=== PATIENT | female | born 1975 | race Caucasian/White ===

== ENCOUNTER 2016-06-04 19:10 | Emergency (ER) | payer MEDICAID ==
[2016-06-04] MEDS ORDERED: Sodium Chloride 0.9% 5 ML Syringe FLUSH PRN (19:49)
[2016-06-04] MEDS ORDERED: Acetaminophen 500 MG Tab PO ONE (19:49)
[2016-06-04] MEDS ORDERED: Sodium Chloride 0.9% 1,000 ML IV ONE ×2 (19:49→20:38)
--- NOTE | 2016-06-04 19:51 | EDM.PDOC ---
ED HPI GENERAL MEDICAL PROBLEM - General Chief Complaint: Fever Stated Complaint: FEVER Time Seen by Provider: 06/04/16 19:35 Source of Information: Reports: Patient History Limitations: Reports: No limitations - History of Present Illness INITIAL COMMENTS - FREE TEXT/NARRATIVE: 40 YO WF presents to ER with fever/chills x 10days. Pt reports she was seen in clinic for URI symptoms 10 days ago and started on augmentin for suspect otitis media. Pt took 7 day course but continued to feel worse with associated upper back pain, weakness and shortness of breath. Pt was seen in clinic again 3 days ago and had a chest xray with patient states was negative but was then started on a z lauren. Pt states shes been trying to control her fevers with motrin 800mg every 6 hours but today it continued despite motrin. Pt denies any productive cough, denies dysuria, frequency or urgency. Onset Date: 05/26/16 Duration: Day(s): (10) Location: Reports: chest, back, generalized Quality: Reports: Ache Severity: mild Improves with: Reports: Medication Worsens with: Reports: None Associated Symptoms: Reports: chest pain, cough, fever/chills, loss of appetite , malaise, shortness of breath, weakness. Denies: cough w sputum, diaphoresis, headaches, nausea/vomiting, rash, syncope Treatments THERAPIST PHYS: Reports: NSAIDS - Related Data Allergies Allergy/AdvReac Type Severity Reaction Status Date / Time No Known Drug Allergies Allergy NKDA Verified 01/27/15 08:11 Home Meds: Home Meds Cetirizine [ZyrTEC] 10 mg PO DAILY PRN 01/26/15 [History] Cholecalciferol (Vitamin D3) [Vitamin D3] 1,000 units PO DAILY 01/26/15 [History ] Chromium Amino Acid Chelate [Chromium] 200 mcg PO BID 01/26/15 [History] Cyanocobalamin (Vitamin B-12) [B-12] 500 mcg PO DAILY 01/26/15 [History] Fish Oil/[place]-3 Fatty Acids [Fish Oil] 1 each PO DAILY 01/26/15 [History] Hydrochlorothiazide 50 mg PO DAILY 01/26/15 [History] Levothyroxine 125 mcg PO ACBREAKFAST 01/26/15 [History] Multivitamin [Multiple Vitamins] 1 tab PO DAILY 01/26/15 [History] Nystatin [Nystatin Crm] 1 applic TOP ASDIRECTED PRN 01/26/15 [History] Omeprazole 20 mg PO DAILY PRN 01/26/15 [History] Phentermine HCl 37.5 mg PO DAILY 01/26/15 [History] metFORMIN [Glucophage] 500 mg PO ACBREAKFAST 01/26/15 [History] Estradiol 0.5 mg PO DAILY 03/31/15 [History] Past Medical History - Past Health History Medical/Surgical History: Denies Medical/Surgical History Social & Family History - Tobacco Use Smoking Status *Q: Current Every Day Smoker Years of Tobacco use: 22 Packs/Tins Daily: 0.5 Used Tobacco, but Quit: No - Recreational Drug Use Recreational Drug Use: No ED ROS GENERAL - Review of Systems Review Of Systems: See Below Constitutional: Reports: fever, chills, decreased appetite HEENT: Reports: No symptoms Respiratory: Reports: Shortness of Breath, Cough Cardiovascular: Reports: Chest pain Endocrine: Reports: fatigue GI/Abdominal: Reports: No symptoms : Reports: no symptoms Musculoskeletal: Reports: back pain Skin: Reports: no symptoms Neurological: Reports: No Symptoms Psychiatric: Reports: No symptoms Hematologic/Lymphatic: Reports: no symptoms Immunologic: Reports: no symptoms ED EXAM, GENERAL - Physical Exam Exam: See Below Exam Limited By: No limitations General Appearance: alert, WD/WN, no apparent distress Eye Exam: bilateral eye: EOMI, PERRL Ears: normal external exam, normal canal, hearing grossly normal, normal TMs Ear Exam: bilateral ear: auricle normal, canal normal, TM normal Nose: normal inspection, normal mucosa, no blood Throat/Mouth: Normal inspection, Normal lips, Normal teeth, Normal gums, Normal oropharynx, Normal voice, No airway compromise Head: atraumatic, normocephalic Neck: normal inspection, supple, non-tender, full range of motion Respiratory/Chest: no respiratory distress, lungs clear, normal breath sounds, no accessory muscle use, chest non-tender Cardiovascular: normal peripheral pulses, regular rate, rhythm, no edema, no gallop, no JVD, no murmur, no rub GI/Abdominal: normal bowel sounds, soft, non tender, no organomegaly, no distention, no abnormal bruit, no mass Back Exam: normal inspection, full range of motion, NT Extremities: normal inspection, normal range of motion, non-tender, normal capillary refill, no pedal edema Neurological: alert, oriented, CN II-XII intact, normal cognition, normal gait, normal reflexes, no motor/sensory deficits Psychiatric: normal affect, normal mood Skin Exam: Warm, Dry, Intact, Normal color, No rash Lymphatic: no adenopathy EKG INTERPRETATION EKG Date: 06/04/16 Time: 20:01 Rhythm: NSR Rate (beats/min): 97 [place]: normal P-wave: present QRS: normal ST-T: normal QT: normal Comparison: NA - no prior EKG Course - Vital Signs Last Recorded V/S: Last Vital Signs Temp 38.7 C H 06/04/16 20:50 Pulse 97 06/04/16 20:50 Resp 26 H 06/04/16 20:50 BP 118/59 L 06/04/16 20:50 Pulse Ox 98 06/04/16 20:50 - Orders/Labs/Meds Orders: Active Orders 24 hr Category Date Time Status Cardiac Monitoring [RC] . DIRECTED Care 06/04/16 20:32 Active EKG Documentation Completion [RC] ASDIRECTED Care 06/04/16 19:51 Active Peripheral IV Care [RC] . DIRECTED Care 06/04/16 19:49 Active Chest 1V Frontal [CR] Stat Exams 06/04/16 19:49 Taken CULTURE BLOOD [BC] Stat Lab 06/04/16 19:30 Received CULTURE BLOOD [BC] Stat Lab 06/04/16 20:38 Received CULTURE BLOOD [BC] Stat Lab 06/04/16 21:25 Received Blood Culture x2 Reflex Set [OM.PC] Stat Oth 06/04/16 19:49 Ordered Peripheral IV Insertion Adult [OM.PC] Routine Oth 06/04/16 19:49 Ordered EKG 12 Lead [EK] Routine Ther 06/04/16 19:51 Ordered Labs: Laboratory Tests 06/04/16 06/04/16 06/04/16 Range/Units 19:30 19:30 19:30 WBC 3.8 L (5.0-10.0) 10^3/uL RBC 4.78 (3.80-5.50) 10^6/uL Hgb 14.7 (12.0-16.0) g/dL Hct 43.0 (37.0-47.0) % MCV 89.9 (82.0-92.0) fL MCH 30.7 (27.0-31.0) pg MCHC 34.2 (32.0-36.0) g/dL RDW 12.3 (11.5-14.5) % Plt Count 138 L (150-300) 10^3/uL MPV 8.1 (7.4-10.4) fL Neut % (Auto) 60.7 (50.0-70.0) % Lymph % (Auto) 26.1 (20.0-40.0) % Winston % (Auto) 11.6 H (2.0-8.0) % Eos % (Auto) 0.6 L (1.0-3.0) % Baso % (Auto) 1.0 (0.0-1.0) % Neut # (Auto) 2.4 L (2.5-7.0) 10^3/uL Lymph # (Auto) 1.0 (1.0-4.0) 10^3/uL Winston # (Auto) 0.4 (0.1-0.8) 10^3/uL Eos # (Auto) 0.0 L (0.1-0.3) 10^3/uL Baso # (Auto) 0.0 (0.0-0.1) 10^3/uL Sodium 141 (136-145) mmol/L Potassium 3.5 (3.3-5.3) mmol/L Chloride 99 (98-115) mmol/L Carbon Dioxide 33.2 H (21.0-32.0) mmol/L BUN 12 (6-25) mg/dL Creatinine 0.72 (0.51-1.17) mg/dL Est Cr Clr Drug Dosing TNP Estimated GFR (MDRD) > 60 mL/min Glucose 119 H (70-110) mg/dL Lactic Acid (0.4-2.0) mmol/L Calcium 9.1 (8.7-10.3) mg/dL Total Bilirubin 1.0 (0.2-1.0) mg/dL AST 67 H (15-37) U/L ALT 95 H (12-78) U/L Alkaline Phosphatase 90 (46-116) IU/L Creatine Kinase 86 (26-276) U/L CK-MB (CK-2) 16.30 H* (0.00-4.30) ng/mL Troponin I 0.13 H* (0.00-0.070) ng/mL Total Protein 7.5 (6.4-8.2) g/dL Albumin 3.92 (3.00-4.80) g/dL Specimen Type Urinvoid Urine Color Yellow (YELLOW) Urine Appearance Slightly cloudy H (CLEAR) Urine pH 7.0 (5.0-9.0) Ur Specific Nelson 1.020 (1.005-1.030) Urine Protein Trace H (NEGATIVE) mg/dL Urine Glucose (UA) Negative (NEGATIVE) mg/dL Urine Ketones Negative (NEGATIVE) mg/dL Urine Occult Blood Moderate H (NEGATIVE) Urine Nitrite Negative (NEGATIVE) Urine Bilirubin Negative (NEGATIVE) Urine Urobilinogen 1.0 (0.2-1.0) E.U./dL Ur Leukocyte Esterase Negative (NEGATIVE) Urine RBC 5-10 H /HPF Urine WBC 0-5 /HPF Ur Epithelial Cells Many H /LPF Urine Bacteria Not seen (NONE TO FEW) /HPF Urine Mucus Rare H (NEGATIVE) /LPF 06/04/16 Range/Units 21:00 WBC (5.0-10.0) 10^3/uL RBC (3.80-5.50) 10^6/uL Hgb (12.0-16.0) g/dL Hct (37.0-47.0) % MCV (82.0-92.0) fL MCH (27.0-31.0) pg MCHC (32.0-36.0) g/dL RDW (11.5-14.5) % Plt Count (150-300) 10^3/uL MPV (7.4-10.4) fL Neut % (Auto) (50.0-70.0) % Lymph % (Auto) (20.0-40.0) % Winston % (Auto) (2.0-8.0) % Eos % (Auto) (1.0-3.0) % Baso % (Auto) (0.0-1.0) % Neut # (Auto) (2.5-7.0) 10^3/uL Lymph # (Auto) (1.0-4.0) 10^3/uL Winston # (Auto) (0.1-0.8) 10^3/uL Eos # (Auto) (0.1-0.3) 10^3/uL Baso # (Auto) (0.0-0.1) 10^3/uL Sodium (136-145) mmol/L Potassium (3.3-5.3) mmol/L Chloride (98-115) mmol/L Carbon Dioxide (21.0-32.0) mmol/L BUN (6-25) mg/dL Creatinine (0.51-1.17) mg/dL Est Cr Clr Drug Dosing Estimated GFR (MDRD) mL/min Glucose (70-110) mg/dL Lactic Acid 0.9 (0.4-2.0) mmol/L Calcium (8.7-10.3) mg/dL Total Bilirubin (0.2-1.0) mg/dL AST (15-37) U/L ALT (12-78) U/L Alkaline Phosphatase (46-116) IU/L Creatine Kinase (26-276) U/L CK-MB (CK-2) (0.00-4.30) ng/mL Troponin I (0.00-0.070) ng/mL Total Protein (6.4-8.2) g/dL Albumin (3.00-4.80) g/dL Specimen Type Urine Color (YELLOW) Urine Appearance (CLEAR) Urine pH (5.0-9.0) Ur Specific Nelson (1.005-1.030) Urine Protein (NEGATIVE) mg/dL Urine Glucose (UA) (NEGATIVE) mg/dL Urine Ketones (NEGATIVE) mg/dL Urine Occult Blood (NEGATIVE) Urine Nitrite (NEGATIVE) Urine Bilirubin (NEGATIVE) Urine Urobilinogen (0.2-1.0) E.U./dL Ur Leukocyte Esterase (NEGATIVE) Urine RBC /HPF Urine WBC /HPF Ur Epithelial Cells /LPF Urine Bacteria (NONE TO FEW) /HPF Urine Mucus (NEGATIVE) /LPF Meds: Medications Discontinued Medications Generic Name Dose Route Start Last Admin Trade Name Freq PRN Reason Stop Dose Admin Acetaminophen 1,000 mg 06/04/16 19:49 06/04/16 19:50 Tylenol Extra Strength PO 06/04/16 19:50 1,000 mg ONETIME ONE Administration Ceftriaxone Sodium 1 gm 06/04/16 21:15 06/04/16 21:45 Rocephin IVPUSH 1 gm Q24H SINDI Administration Sodium Chloride 1,000 mls @ 999 mls/hr 06/04/16 19:49 06/04/16 20:39 Normal Saline IV 06/04/16 20:49 999 mls/hr .BOLUS ONE Administration Sodium Chloride 1,000 mls @ 999 mls/hr 06/04/16 20:38 06/04/16 20:44 Normal Saline IV 06/04/16 21:38 999 mls/hr .BOLUS ONE Administration Vancomycin HCl 1 gm/ Sodium 250 mls @ 167 mls/hr 06/04/16 21:07 06/04/16 21: 45 Chloride IV 06/04/16 22:36 167 mls/hr ONETIME ONE Administration Sodium Chloride 1,000 mls @ 150 mls/hr 06/04/16 21:30 06/04/16 21:49 Normal Saline IV 150 mls/hr ASDIRECTED SINDI Administration Sodium Chloride 5 ml 06/04/16 19:49 06/04/16 21:45 Syrex Flush FLUSH 5 ml Q8HR PRN Administration Keep Vein Open - Radiology Interpretation Free Text/Narrative:: CXR- NAD Departure - Departure Time of Disposition: 20:41 Disposition: DC/Tfer to Acute Hospital 02 Condition: fair Clinical Impression: Elevated troponin I level Fever Qualifiers: Fever type: unspecified Qualified Code(s): R50.9 - Fever, unspecified Referrals: Tyshawn Banerjee, [employer] [Primary Care Provider] - Forms: Interfacility Transfer EMMANUELLE - My Orders Last 24 Hours: My Active Orders 06/04/16 19:30 CULTURE BLOOD [BC] Stat 06/04/16 19:49 Peripheral IV Care [RC] . DIRECTED Chest 1V Frontal [CR] Stat Blood Culture x2 Reflex Set [OM.PC] Stat Peripheral IV Insertion Adult [OM.PC] Routine 06/04/16 19:51 EKG Documentation Completion [RC] ASDIRECTED EKG 12 Lead [EK] Routine 06/04/16 20:32 Cardiac Monitoring [RC] . DIRECTED 06/04/16 20:38 CULTURE BLOOD [BC] Stat 06/04/16 21:25 CULTURE BLOOD [BC] Stat - Assessment/Plan Last 24 Hours: My Active Orders 06/04/16 19:30 CULTURE BLOOD [BC] Stat 06/04/16 19:49 Peripheral IV Care [RC] . DIRECTED Chest 1V Frontal [CR] Stat Blood Culture x2 Reflex Set [OM.PC] Stat Peripheral IV Insertion Adult [OM.PC] Routine 06/04/16 19:51 EKG Documentation Completion [RC] ASDIRECTED EKG 12 Lead [EK] Routine 06/04/16 20:32 Cardiac Monitoring [RC] . DIRECTED 06/04/16 20:38 CULTURE BLOOD [BC] Stat 06/04/16 21:25 CULTURE BLOOD [BC] Stat Assessment:: 1. intractable fever 2. rule out bacteremia 3. rule out sepsis 4. elevated trop I rule out endocarditis or NSTEMI Plan: 1. transfer for rule out sepsis/endocarditis/NSTEMI 2. nitro/ASA 3. discuss with [facility] 4. Dr Bashir accepting
[2016-06-04 20:36] LABS: CHLORIDE,CL 99 mmol/L (98-115); SODIUM,NA 141 mmol/L (136-145)
[2016-06-04 20:51] VITALS: BP 118/59
[2016-06-04] MEDS ORDERED: cefTRIAXone 1 GM Vial IVPUSH SCH (21:15)
[2016-06-04] MEDS ORDERED: Sodium Chloride 0.9% 1,000 ML IV SCH (21:30)
== END 2016-06-04 21:35 ==
LOC: KA.ED 19:10
DX: R50.9 Fever, unspecified (principal); R79.89 Other specified abnormal findings of blood chemistry; R06.02 Shortness of breath; R53.1 Weakness; F17.210 Nicotine dependence, cigarettes, uncomplicated; Z79.899 Other long term (current) drug therapy
CPT/HCPCS: 71010; 80053; 81001; 82550; 82553; 83605; 84484; 85025; 87040; 87804; 93005; 96361; 96365; 96375; 99285; A9270; J0696; J3370; J7030; J7050

== ENCOUNTER 2016-06-17 15:29 | Inpatient (IN) | payer MEDICAID ==
[2016-06-17] MEDS ORDERED: Nitroglycerin 0.4 MG Tab.SL SL PRN (16:08)
[2016-06-17] MEDS ORDERED: Lidocaine 2% 100 MG/5 ML Syringe IVPUSH PRN (16:08)
[2016-06-17] MEDS ORDERED: Atropine 0.1 MG/ML 10 ML Syringe IVPUSH PRN (16:08)
[2016-06-17] MEDS ORDERED: EPINEPHrine 1:10,000 1 MG/10 ML Syringe IVPUSH PRN (16:08)
[2016-06-17] MEDS ORDERED: Sodium Chloride 0.9% 1,000 ML IV SCH (17:00)
[2016-06-17] MEDS ORDERED: Ondansetron 4 MG/2 ML SDV IV PRN (18:16)
[2016-06-17] MEDS ORDERED: Acetaminophen 325 MG Tab PO PRN (18:16)
[2016-06-17] MEDS ORDERED: Cetirizine 10 MG Tab PO PRN (18:21)
[2016-06-17] MEDS ORDERED: Nystatin Crm 15 GM Tube TOP PRN (18:21)
[2016-06-17] MEDS ORDERED: Isosorbide Mononitrate 30 MG Tab.ER PO SCH (18:30)
--- NOTE | 2016-06-17 20:33 | PCM.DCSUM1 ---
Discharge Summary - Hospital Course Free Text/Narrative:: This is a 40 year old female who was seen at the [facility] this afternoon for fever, chest pain, shortness of breath, and headache. The patient developed a temp of 102 last evening and took ibuprofen. She complains of a headache to the back of her head stating it felt like she was hit with a "sledgehammer". The patient was recently hospitalized at [facility] for the same symptoms on 06/04/16 and discharged on 06/10/16. She underwent extensive workup for possible aspetic meningitis. She also had a mild type II NSTEMI at that time. It was deemed she had fever of unknown etiology. She was symptom free on discharge and up until last evening (06/16/16). The patient was subsequently admitted to the [facility] for further workup of her condition. - Discharge Data Discharge Date: 06/17/16 Discharge Disposition: DC/Tfer to Other 70 Condition: Fair - Patient Summary/Data Consults: Infectious Disease-Dr. Joseph Hospitalist-Dr. Harper Labs Pending at D/C: Blood cultures x 2 Viral culture - Discharge Plan Home Medications: Home Meds Cetirizine [ZyrTEC] 10 mg PO DAILY PRN 01/26/15 [History] Cholecalciferol (Vitamin D3) [Vitamin D3] 1,000 units PO DAILY 01/26/15 [History ] Chromium Amino Acid Chelate [Chromium] 200 mcg PO DAILY 01/26/15 [History] Cyanocobalamin (Vitamin B-12) [B-12] 500 mcg PO DAILY 01/26/15 [History] Hydrochlorothiazide 50 mg PO DAILY 01/26/15 [History] Levothyroxine 137 mcg PO ACBREAKFAST 01/26/15 [History] Multivitamin [Multiple Vitamins] 1 tab PO DAILY 01/26/15 [History] Nystatin [Nystatin Crm] 1 applic TOP ASDIRECTED PRN 01/26/15 [History] Omeprazole 20 mg PO BIDMEALS 01/26/15 [History] Phentermine HCl 37.5 mg PO DAILY 01/26/15 [History] metFORMIN [Glucophage] 500 mg PO ACBREAKFAST 01/26/15 [History] Estradiol 1 mg PO DAILY 03/31/15 [History] Cyclobenzaprine [Flexeril] 5 mg PO TID PRN 06/17/16 [History] Fluconazole [Diflucan] 150 mg PO ASDIRECTED 06/17/16 [History] QUEtiapine [SEROquel] 12.5 mg PO BEDTIME 06/17/16 [History] metFORMIN HCl [Metformin HCl] 1,000 mg PO ACDINNER 06/17/16 [History] - Discharge Summary/Plan Comment DC Time >30 min.: Yes (Approximately 50 minutes of coordination of transfer.) Discharge Summary/Plan Comment: Date of admission: 06/17/16 Date of discharge: 06/17/16 Admitting diagnosis: Primary: Fever of unknown etiology, Rule out UT with recent NSTEMI Secondary: Hypertension, Hypothyroidism, Obesity, Low back pain, Environmental allergies, Hyperlipidemia, Surgical menopause on HRT, Generalized anxiety disorder, Lung nodule Final diagnosis: Primary: Fever of unknown etiology, Rule out UT with recent NSTEMI Secondary: Hypertension, Hypothyroidism, Obesity, Low back pain, Environmental allergies, Hyperlipidemia, Surgical menopause on HRT, Generalized anxiety disorder, Lung nodule Procedures performed: None Hospital Course: The patient's hospital course was quite short. The patient continued to spike a temperature without antipyretic on board. It was as high as 100.4 F. She continued to have an occipital headache, chest pressure, and shortness of breath at rest. EKG revealed normal sinus rhythm without ST segment changes and good R wave progression. Her troponin was 0.04. She was placed on telemetry. WBC 8.6 with no left shift. BMP unremarkable. UA revealed moderate blood, few bacteria, no leukocytes or nitrites. Patient is status post hysterectomy. She had blood cultures x 2 and a viral culture done on admission. Chest x-ray was negative for acute process. She was placed on IV fluids. She was not initiated on antibiotics. With returning of same symptoms that she was previously hospitalized for a consult phone call was placed to [facility], Dr. Joseph. Long discussion and review of previous workup was done with him over the phone. He requested patient be sent to [place] for further evaluation. Dr. Harper, hospitalist, accepted the patient. Due to shortage of ambulances for transfer, patient was discharged from the facility and transferred by private car. Patient and family in agreement with this and comfortable with this plan. Patient's IV was saline locked. New medications on discharge: None New changes to home medications on discharge: None Regular home medications on discharge: -Metformin 500 mg po in the AM and 1000 mg po in the PM -Seroquel 12.5 mg po daily -Estradiol 1 mg po daily -Levothyroxine 137 mcg po daily -Phentermine 37.5 mg po daily -Felxeril 5 mg po TID PRN -HCTZ 50 mg po daily -Nystatin cream topically to affected area PRN for itching -Chromium 200 mcg po daily -Vitamin D3 1000 units po daily -Vitamin B12 500 mcg po daily -Multivitamin 1 tablet po daily -Zyrtec 10 mg po daily -Diflucan 150 mg po as directed Condition, Treatment, and Final Disposition: The patient was in fair, but stable condition at the time of discharge. She went via private car to [facility] for direct admission. Dr. Harper was accepting physician. - General Info Date of Service: 06/17/16 Subjective Update: Patient reports continued fever, chills, sweating, posterior headache, chest pressure, and shortness of breath. - Patient Data Vitals - Most Recent: Last Vital Signs Temp 99.1 F 06/17/16 19:09 Pulse 102 H 06/17/16 19:00 Resp 16 06/17/16 19:00 BP 115/67 06/17/16 19:10 Pulse Ox 95 06/17/16 19:00 Weight - Most Recent: 221 lb 3.2 oz Lab Results - Last 24 hrs: Laboratory Results - last 24 hr 06/17/16 Range/Units 16:30 Troponin I 0.04 (0.00-0.070) ng/mL Med Orders - Current: Current Medications Acetaminophen (Tylenol) 650 mg PO Q4H PRN PRN Reason: Pain (Mild 1-3)/fever Last Admin: 06/17/16 19:09 Dose: 650 mg Atropine Sulfate (Atropine 0.1 Mg/Ml) 0 mg IVPUSH ASDIRECTED PRN PRN Reason: Heart Cetirizine HCl (Zyrtec) 10 mg PO DAILY PRN PRN Reason: Allergies Cyanocobalamin (Vitamin B12) 500 mcg PO DAILY SIDNI Epinephrine HCl (Epinephrine 1:10,000) 1 mg IVPUSH ASDIRECTED PRN PRN Reason: Heart Estradiol (Estradiol) 1 mg PO DAILY SINDI Hydrochlorothiazide (Hydrochlorothiazide) 50 mg PO DAILY SINDI Sodium Chloride (Normal Saline) 1,000 mls @ 70 mls/hr IV ASDIRECTED SINDI Last Admin: 06/17/16 17:20 Dose: 70 mls/hr Isosorbide Mononitrate (Imdur) 30 mg PO DAILY [facility] Last Admin: 06/17/16 19:10 Dose: 30 mg Levothyroxine Sodium (Levothyroxine) 112 mcg PO ACBREAKFAST SINDI Levothyroxine Sodium (Levothyroxine) 25 mcg PO ACBREAKFAST SINDI Lidocaine HCl (Xylocaine 2%) 0 mg IVPUSH ASDIRECTED PRN PRN Reason: Heart Nitroglycerin (Nitrostat) 0.4 mg SL ASDIRECTED PRN PRN Reason: Heart Non-Formulary Medication (Chromium Amino Acid Chelate [Chromium]) 200 mcg PO DAILY [facility] Nystatin (Nystatin Crm) 0 gm TOP ASDIRECTED PRN PRN Reason: Other Omeprazole (Omeprazole) 20 mg PO BIDAC [facility] Ondansetron HCl (Zofran) 4 mg IV Q4H PRN PRN Reason: Nausea/Vomiting Quetiapine Fumarate (Seroquel) 12.5 mg PO BEDTIME SINDI *Q Meaningful Use (DIS) - VTE *Q VTE Criteria *Q: - Stroke *Q Stroke Criteria *Q: - AMI *Q AMI Criteria *Q:
[2016-06-17 20:48] VITALS: BP 129/72
[2016-06-17] MEDS ORDERED: QUEtiapine 25 MG Tab PO SCH (21:00)
[2016-06-18] MEDS ORDERED: Omeprazole 20 MG Cap.CR PO SCH (07:00)
[2016-06-18] MEDS ORDERED: Levothyroxine 112 MCG Tab PO SCH (07:00)
[2016-06-18] MEDS ORDERED: Levothyroxine 25 MCG Tab PO SCH (07:00)
[2016-06-18] MEDS ORDERED: CHROMIUM AMINO ACID CHELATE PO SCH (09:00)
[2016-06-18] MEDS ORDERED: Cyanocobalamin (Vitamin B12) 500 MCG Tab PO SCH (09:00)
[2016-06-18] MEDS ORDERED: Estradiol 0.5 MG Tab PO SCH (09:00)
[2016-06-18] MEDS ORDERED: Hydrochlorothiazide 25 MG Tab PO SCH (09:00)
== END 2016-06-17 21:15 | disposition other institution (70) | DRG 864 ==
LOC: KA.MS 15:59
PROVIDERS: ADMIT Nurse Practitioner Family; ATTEND Nurse Practitioner Family
DX: R50.9 Fever, unspecified (principal); I21.3 ST elevation (STEMI) myocardial infarction of unspecified site; I10 Essential (primary) hypertension; E03.9 Hypothyroidism, unspecified; E66.9 Obesity, unspecified; Z68.37 Body mass index [BMI] 37.0-37.9, adult; M54.5 Low back pain; J30.2 Other seasonal allergic rhinitis; E78.5 Hyperlipidemia, unspecified; F41.9 Anxiety disorder, unspecified; R91.1 Solitary pulmonary nodule
CPT/HCPCS: 36415; 71020; 84484; 87040; 93005; A9270-GY; J7030

== ENCOUNTER 2018-08-09 16:25 | Emergency (ER) | payer BC ==
[2018-08-09] MEDS: Dexamethasone 10 MG/ML SDV IM ONE (16:54)
[2018-08-09 16:59] VITALS: BP 154/80
--- NOTE | 2018-08-09 17:10 | EDM.PDOC ---
ED HPI GENERAL MEDICAL PROBLEM - General Chief Complaint: General Stated Complaint: R-SIDED FACIAL NUMBNESS Time Seen by Provider: 08/09/18 16:43 Source of Information: Reports: Patient History Limitations: Reports: No Limitations - History of Present Illness INITIAL COMMENTS - FREE TEXT/NARRATIVE: Patient is a 43-year-old female who presents to the emergency department this afternoon with a complaint of rash and right cheek numbness and tingling. Patient states at approximately 11 a.m. this morning, she noticed some tingling of her right cheek. When she touched it felt like it was a little numb. This continued and she decided to present to the ER. Patient does have a history of chronic generalized rash. She has had multiple tests done and is currently taking Claritin. She is planning to see a food safety director. Patient states that she takes Claritin first thing in the morning and typically does not have a rash during the day, however, when she does get into bed at night the rash seems to develop and she is very itchy. Currently she is not taking any antihistamine medication in the PM. Patient denies headache, vision changes, ptosis, difficulty speaking or swallowing, fever, chest pain, shortness of breath, change in medication, or similar symptoms in the past. Onset: Today Onset Date: 08/09/18 Duration: Hour(s): Location: Reports: Face, Generalized (Rash) Quality: Reports: Other (Itchy) Improves with: Reports: None, Other (Rash improves during day following Claritin ) Worsens with: Reports: Other (Rash worsens in the evening) Associated Symptoms: Reports: Rash. Denies: Chest Pain, Diaphoresis, Fever/ Chills, Headaches, Nausea/Vomiting, Shortness of Breath, Syncope, Weakness - Related Data Allergies Allergy/AdvReac Type Severity Reaction Status Date / Time No Known Drug Allergies Allergy NKDA Verified 08/09/18 16:43 Home Meds: Home Meds Cetirizine [ZyrTEC] 10 mg PO DAILY PRN 01/26/15 [History] Cyanocobalamin (Vitamin B-12) [B-12] 500 mcg PO DAILY 01/26/15 [History] Levothyroxine 137 mcg PO ACBREAKFAST 01/26/15 [History] Multivitamin [Multiple Vitamins] 1 tab PO DAILY 01/26/15 [History] Nystatin [Nystatin Crm] 1 applic TOP ASDIRECTED PRN 01/26/15 [History] Omeprazole 20 mg PO BIDMEALS 01/26/15 [History] hydroCHLOROthiazide [Hydrochlorothiazide] 50 mg PO DAILY 01/26/15 [History] metFORMIN [Glucophage] 500 mg PO ACBREAKFAST 01/26/15 [History] Estradiol 1 mg PO DAILY 03/31/15 [History] metFORMIN HCl [Metformin HCl] 1,000 mg PO ACDINNER 06/17/16 [History] SitaGLIPtin [Januvia] 100 mg PO DAILY 08/09/18 [History] methylPREDNISolone [Medrol] 4 mg PO DAILY #1 dospk 08/09/18 [Rx] Past Medical History - Past Health History Medical/Surgical History: Denies Medical/Surgical History HEENT History: Reports: Hard of Hearing, Impaired Vision Other HEENT History: otosclerosis Cardiovascular History: Reports: High Cholesterol, [place], Other (See Below) Other Cardiovascular History: elevated cardiac enzymes Gastrointestinal History: Reports: Cholelithiasis Genitourinary History: Reports: UTI, Recurrent, Other (See Below) Other Genitourinary History: blood in the urine 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: Dysfunctional Uterine Bleeding, Fibroids, Polycystic Ovaries, , Spontaneous Musculoskeletal History: Reports: Arthritis Psychiatric History: Reports: Anxiety, Depression Endocrine/Metabolic History: Reports: Hypoparathyroidism, Obesity/BMI 30+ Hematologic History: Reports: Blood Transfusion(s) - Infectious Disease History Infectious Disease History: Reports: C-Difficile, Mononucleosis - Past Surgical History HEENT Surgical History: Reports: Adenoidectomy GI Surgical History: Reports: Cholecystectomy Female Surgical History: Reports: Hysterectomy, Oophorectomy Other Musculoskeletal Surgeries/Procedures:: SI joint injection 2 weeks ago Social & Family History - Family History HEENT: Reports: Hearing Impairment, Impaired Vision Cardiac: Reports: Blood Clots/VTE/DVT, [place], Stent Respiratory: Reports: COPD Musculoskeletal: Reports: RA - Tobacco Use Smoking Status *Q: Current Every Day Smoker Years of Tobacco use: 20 Packs/Tins Daily: 0.5 - Caffeine Use Caffeine Use: Reports: Coffee, Soda - Recreational Drug Use Recreational Drug Use: No ED ROS GENERAL - Review of Systems Review Of Systems: ROS reveals no pertinent complaints other than HPI. Constitutional: Reports: No Symptoms HEENT: Reports: No Symptoms Respiratory: Reports: No Symptoms Cardiovascular: Reports: No Symptoms Endocrine: Reports: No Symptoms GI/Abdominal: Reports: No Symptoms : Reports: No Symptoms Musculoskeletal: Reports: No Symptoms Skin: Reports: No Symptoms Neurological: Reports: Numbness, Tingling. Denies: Confusion, Dizziness, Headache, Paresthesia, Pre-Existing Deficit, Trouble Speaking, Difficulty Walking, Weakness, Change in Speech, Gait Disturbance Psychiatric: Reports: No Symptoms Hematologic/Lymphatic: Reports: No Symptoms Immunologic: Reports: Grass Allergy ED EXAM, GENERAL - Physical Exam Exam: See Below Exam Limited By: No Limitations General Appearance: Alert, WD/WN, No Apparent Distress Eye Exam: Bilateral Eye: Normal Inspection Ears: Normal External Exam, Normal Canal, Normal TMs Nose: Normal Inspection Throat/Mouth: Normal Inspection, Normal Lips, Normal Teeth, Normal Gums, Normal Oropharynx, Normal Voice, No Airway Compromise Head: Atraumatic, Normocephalic Neck: Normal Inspection, Supple, Non-Tender, Full Range of Motion. No: Lymphadenopathy (L), Lymphadenopathy (R) Respiratory/Chest: No Respiratory Distress, Lungs Clear, Normal Breath Sounds, No Accessory Muscle Use, Chest Non-Tender Cardiovascular: Regular Rate, Rhythm, No Murmur Back Exam: Normal Inspection Extremities: Normal Inspection, No Pedal Edema Neurological: Alert, Oriented, CN II-XII Intact, Normal Cognition, Sensory/ Motor Deficit (Minimal sensory change to right cheek without any other neuro focal deficits.) Skin Exam: Warm, Dry, Intact, Normal Color, Rash (Bilateral upper and lower extremities with mild erythema that blanches. Trunk and face are spared. This is of chronic nature per patient.) Lymphatic: No Adenopathy Course - Vital Signs Last Recorded V/S: Last Vital Signs Temp 97 F 08/09/18 16:31 Pulse 80 08/09/18 16:58 Resp 16 08/09/18 16:58 BP 154/80 H 08/09/18 16:58 Pulse Ox 98 08/09/18 16:31 - Orders/Labs/Meds Meds: Medications Discontinued Medications Generic Name Dose Route Start Last Admin Trade Name Freq PRN Reason Stop Dose Admin Dexamethasone 8 mg 08/09/18 16:43 08/09/18 16:54 Dexamethasone IM 08/09/18 16:44 8 mg ONETIME ONE Administration - Re-Assessments/Exams Free Text/Narrative Re-Assessment/Exam: 08/09/18 17:21 Patient is afebrile, vital signs stable, no neuro focal deficits noted. Patient was given 8 mg Decadron in ER. Does not appear to be Neil's palsy at this juncture. Patient will try antihistamines twice a day. Patient will follow-up with PCP tomorrow. 08/09/18 17:24 Departure - Departure Time of Disposition: 17:22 Disposition: Home, Self-Care 01 Condition: Good Clinical Impression: Chronic pruritic rash in adult, Right facial numbness Allergic reaction Qualifiers: Encounter type: sequela Qualified Code(s): T78.40XS - Allergy, unspecified, sequela - Discharge Information Prescriptions: methylPREDNISolone [Medrol] 4 mg PO DAILY #1 dospk Instructions: Allergies, Adult, [id number], Rash, [id number], Paresthesia, [id number] Referrals: Tyshawn Banerjee, I O PSYCHOLOGIST [Primary Care Provider] - Additional Instructions: Follow-up at [facility] tomorrow. Return to emergency department sooner if symptoms continue or worsen. Take antihistamine twice a day, in morning and again in evening prior to bedtime. - Assessment/Plan Assessment:: Rash Plan: Follow-up with PCP tomorrow
== END 2018-08-09 17:35 | disposition home or self-care (01) ==
LOC: KA.ED 16:25
DX: L29.8 Other pruritus (principal); R20.0 Anesthesia of skin; E78.00 Pure hypercholesterolemia, unspecified; I25.2 Old myocardial infarction; F41.9 Anxiety disorder, unspecified; F32.9 Major depressive disorder, single episode, unspecified; E66.9 Obesity, unspecified; F17.210 Nicotine dependence, cigarettes, uncomplicated; Z79.899 Other long term (current) drug therapy; Z68.36 Body mass index [BMI] 36.0-36.9, adult
CPT/HCPCS: 96372; 99283; J1100

== ENCOUNTER 2020-07-30 22:43 | Emergency (ER) | payer BC ==
--- NOTE | 2020-07-30 23:10 | EDM.PDOC ---
ED HPI GENERAL MEDICAL PROBLEM - General Chief Complaint: General Time Seen by Provider: 07/30/20 23:02 Source of Information: Reports: Patient History Limitations: Reports: No Limitations - History of Present Illness INITIAL COMMENTS - FREE TEXT/NARRATIVE: Patient presents with right foot pain after being stepped on by a calf (probably 350# est) while wearing flip flops. The pain is in the midfoot but she scraped her toes and cleaned and bandaged them prior to coming in. Tetanus is probably 5-10 years she thinks. - Related Data Allergies Allergy/AdvReac Type Severity Reaction Status Date / Time No Known Drug Allergies Allergy NKDA Verified 06/01/20 09:20 Home Meds: Home Meds Cetirizine [ZyrTEC] 10 mg PO DAILY PRN 01/26/15 [History] Levothyroxine 137 mcg PO ACBREAKFAST 01/26/15 [History] Omeprazole 20 mg PO DAILY 01/26/15 [History] hydroCHLOROthiazide [Hydrochlorothiazide] 50 mg PO DAILY 01/26/15 [History] Estradiol 1 mg PO DAILY 03/31/15 [History] SitaGLIPtin [Januvia] 100 mg PO DAILY 08/09/18 [History] Furosemide 20 mg PO BID PRN 05/26/20 [History] Phentermine HCl 37.5 mg PO DAILY 05/26/20 [History] metFORMIN HCl [Metformin HCl] 1,000 mg PO BID 05/26/20 [History] Past Medical History - Past Health History Medical/Surgical History: Denies Medical/Surgical History HEENT History: Reports: Hard of Hearing, Impaired Vision Other HEENT History: otosclerosis Cardiovascular History: Reports: High Cholesterol, [place], Other (See Below) Other Cardiovascular History: elevated cardiac enzymes Gastrointestinal History: Reports: Cholelithiasis Genitourinary History: Reports: UTI, Recurrent, Other (See Below) Other Genitourinary History: blood in the urine 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: Dysfunctional Uterine Bleeding, Fibroids, Polycystic Ovaries, , Spontaneous Musculoskeletal History: Reports: Arthritis Psychiatric History: Reports: Anxiety, Depression Endocrine/Metabolic History: Reports: Hypoparathyroidism, Obesity/BMI 30+ Hematologic History: Reports: Blood Transfusion(s) - Infectious Disease History Infectious Disease History: Reports: C-Difficile, Mononucleosis - Past Surgical History HEENT Surgical History: Reports: Adenoidectomy GI Surgical History: Reports: Cholecystectomy Female Surgical History: Reports: Hysterectomy, Oophorectomy Other Musculoskeletal Surgeries/Procedures:: SI joint injection 2 weeks ago Social & Family History - Family History HEENT: Reports: Hearing Impairment, Impaired Vision Cardiac: Reports: Blood Clots/VTE/DVT, [place], Stent Respiratory: Reports: COPD Musculoskeletal: Reports: RA - Caffeine Use Caffeine Use: Reports: Coffee, Soda ED ROS GENERAL - Review of Systems Review Of Systems: See Below Constitutional: Denies: Fever, Chills, Weakness HEENT: Reports: No Symptoms Respiratory: Reports: No Symptoms Cardiovascular: Reports: No Symptoms GI/Abdominal: Reports: No Symptoms : Reports: No Symptoms Musculoskeletal: Reports: Foot Pain. Denies: Neck Pain, Shoulder Pain, Arm Pain, Back Pain, Hand Pain, Leg Pain Skin: Denies: Cyanosis, Jaundice, Mottled, Pallor, Diaphoresis Neurological: Denies: Confusion, Dizziness, Seizure, Syncope, Trouble Speaking, Difficulty Walking Psychiatric: Denies: Agitation, Anxiety ED EXAM, GENERAL - Physical Exam Exam: See Below Exam Limited By: No Limitations General Appearance: Alert, WD/WN, No Apparent Distress Eye Exam: Bilateral Eye: EOMI, Normal Inspection, PERRL Ears: Normal External Exam, Hearing Grossly Normal Nose: Normal Inspection, No Blood Throat/Mouth: Normal Inspection, Normal Lips, Normal Voice, No Airway Compromise Head: Atraumatic, Normocephalic Neck: Normal Inspection, Full Range of Motion Respiratory/Chest: No Respiratory Distress, Lungs Clear, Normal Breath Sounds Cardiovascular: Regular Rate, Rhythm, No Murmur Extremities: Other (No deformity or lacerations. Pain in left 3 & 4 metatarsals primarily. Toes non-tender to palpation. Distal CMS intact.) Neurological: Alert, Oriented, Normal Cognition, No Motor/Sensory Deficits Psychiatric: Normal Affect, Normal Mood Skin Exam: Warm, Dry, Intact, Normal Color, No Rash Course - Re-Assessments/Exams Free Text/Narrative Re-Assessment/Exam: 07/30/20 23:39 Xrays show no acute fractures or dislocation. Discussed findings with patient. Cleaning foot to make sure there are no skin wounds of toes as patient thought there might be. 07/31/20 00:21 There is very superficial partial sloughing of the epidermis on two middle toes without any bleeding evident. She would still like the tetanus booster which is appropriate I feel with all the exposure she has potentially. 07/31/20 00:40 Hard-soled show is fitted and applied. This allows tolerable weightbearing putting weight primarily on her heel. She doesn't want crutches. Discharged to home in stable condition. Departure - Departure Time of Disposition: 00:20 Disposition: Home, Self-Care 01 Condition: Good Clinical Impression: Right foot injury Qualifiers: Encounter type: initial encounter Qualified Code(s): S99.921A - Unspecified injury of right foot, initial encounter Clinical Impression: (Ruled Out): Persistent dry cough, Chest pain, Hyponatremia - Discharge Information Forms: ED Department Discharge Additional Instructions: Weight bearing on the right foot as tolerated without significant pain. Use the hard-soled shoe until comfortable without it. You can use crutches too if needed. Follow up with your PCP if not improving in a week.
[2020-07-30] MEDS ORDERED: Acetaminophen 325 MG Tab PO ONE (23:31)
[2020-07-30] MEDS ORDERED: Ibuprofen 600 MG Tab PO ONE (23:31)
[2020-07-31] MEDS ORDERED: Diphtheria,Pertussis(Acell),Tetanus Vaccine 0.5 ML Syringe IM ONE (00:04)
[2020-07-31 03:00] VITALS: BP 136/80; PULSE 85
--- NOTE | 2020-07-31 07:37 | CR ---
[id number] RAD/RAD Foot Left 2V EXAM: RAD Foot Left 2V CLINICAL DATA: TRAUMA COMPARISON: NO PREVIOUS SIMILAR EXAM IS AVAILABLE. FINDINGS: No fracture or dislocation is seen. There is no radiopaque foreign body in the soft tissues. There is no air in the soft tissues. There is no cortical thickening or periosteal reaction either. IMPRESSION: NEGATIVE PLAIN FILM EXAM. Miles Sandy MD 07/31/20 0736 Thank you for allowing us to participate in the care of your patient.
== END 2020-07-31 00:40 | disposition home or self-care (01) ==
LOC: KA.ED 22:43
DX: S99.921A Unspecified injury of right foot, initial encounter (principal); E78.00 Pure hypercholesterolemia, unspecified; I25.2 Old myocardial infarction; E03.9 Hypothyroidism, unspecified; E66.9 Obesity, unspecified; Z79.899 Other long term (current) drug therapy; Z23 Encounter for immunization; Z68.34 Body mass index [BMI] 34.0-34.9, adult; W22.8XXA Striking against or struck by other objects, initial encounter
CPT/HCPCS: 73630-RT; 90471; 90715; 99283; 99283-25; A9270-GY

== ENCOUNTER 2021-04-13 08:17 | Day surgery (SDC) | payer BC ==
[~2021-04-13 08:17] MED LIST: Sodium Chloride 0.9% 10 ML Syringe FLUSH PRN
[2021-04-13] MEDS ORDERED: Propofol 200 MG/20 ML SDV IV ONE (08:18)
[2021-04-13] MEDS ORDERED: Glycopyrrolate 0.2 MG/ML SDV IVPUSH ONE (08:18)
[2021-04-13] MEDS: Sodium Chloride 0.9% 1,000 ML IV SCH (08:36)
[2021-04-13] MEDS ORDERED: Midazolam 1 MG/ML 2 ML SDV ONE (08:54)
[2021-04-13] MEDS ORDERED: Ketamine 200 MG/20 ML MDV ONE (08:55)
[2021-04-13] MEDS ORDERED: Propofol 200 MG/20 ML SDV ONE ×2 (08:55→09:39)
[2021-04-13] MEDS ORDERED: Lidocaine 2% 5 ML SDV ONE (08:55)
[2021-04-13 11:08] VITALS: BP 132/78; PULSE 78
== END 2021-04-13 11:13 | disposition home or self-care (01) ==
LOC: KA.SDS 08:17
PROVIDERS: ATTEND Surgery
DX: R19.7 Diarrhea, unspecified (principal); K29.50 Unspecified chronic gastritis without bleeding; K31.89 Other diseases of stomach and duodenum; E11.9 Type 2 diabetes mellitus without complications; N39.0 Urinary tract infection, site not specified; K21.9 Gastro-esophageal reflux disease without esophagitis; F17.210 Nicotine dependence, cigarettes, uncomplicated; Z88.8 Allergy status to other drugs, medicaments and biological substances; Z79.899 Other long term (current) drug therapy
CPT/HCPCS: 82947; J2250; J2704; J3490; J7030

== ENCOUNTER 2021-06-08 14:43 | Inpatient (IN) | payer BC ==
[2021-06-08] MEDS ORDERED: Sodium Chloride 0.9% 1,000 ML IV ONE (14:47)
[2021-06-08] MEDS ORDERED: Sodium Chloride 0.9% 10 ML Syringe FLUSH PRN (14:47)
[2021-06-08] MEDS ORDERED: Acetaminophen 500 MG Tab PO ONE (14:49)
[2021-06-08] MEDS ORDERED: Iopamidol 755 Mg/ML 75 ML Bottle IVPUSH ONE (15:25)
[2021-06-08 15:29] LABS: ANION GAP 12.3 mmol/L (5-15); CHLORIDE,CL 97 mmol/L (98-107); SODIUM,NA 133 mmol/L (136-145)
[2021-06-08] MEDS: Sodium Chloride 0.9% 50 ML IV SCH (15:29)
[2021-06-08] MEDS ORDERED: NS with KCl 40mEq 1,000 ML IV SCH (16:30)
[2021-06-08] MEDS ORDERED: Acetaminophen 325 MG Tab PO PRN (17:04)
[2021-06-08] MEDS ORDERED: Ciprofloxacin in D5W 400 MG in Premix Bag 1 BAG IV SCH ×2 (17:15)
[2021-06-08] MEDS ORDERED: metroNIDAZOLE/Normal Saline 500 MG in Premix Bag 1 BAG IV SCH (17:15)
[2021-06-08] MEDS ORDERED: Potassium Chloride 20 MEQ in Premix Bag 1 BAG IV ONE (18:30)
[2021-06-08] MEDS: Ciprofloxacin in D5W 400 MG in Premix Bag 1 BAG IV SCH ×2 (18:35)
[2021-06-08] MEDS: metroNIDAZOLE/Normal Saline 500 MG in Premix Bag 1 BAG IV SCH (19:58)
[2021-06-08] MEDS ORDERED: Ketorolac 30 MG/ML SDV IVPUSH ONE (20:13)
[2021-06-08] MEDS ORDERED: Loperamide 2 MG Cap PO ONE (20:15)
[2021-06-09] MEDS: Sodium Chloride 0.9% 50 ML IV SCH ×2 (00:50→10:39)
[2021-06-09] MEDS ORDERED: Potassium Chloride 20 MEQ in Premix Bag 1 BAG IV ONE (01:00)
[2021-06-09] MEDS: Sodium Chloride 0.9% 250 ML IV SCH (02:10)
[2021-06-09] MEDS ORDERED: Loperamide 2 MG Cap PO PRN (03:00)
[2021-06-09] MEDS: metroNIDAZOLE/Normal Saline 500 MG in Premix Bag 1 BAG IV SCH ×3 (03:03→19:33)
[2021-06-09] MEDS: Ketorolac 30 MG/ML SDV IVPUSH PRN ×3 (04:51→19:31)
[2021-06-09] MEDS: Ciprofloxacin in D5W 400 MG in Premix Bag 1 BAG IV SCH ×4 (05:01→17:58)
[2021-06-09] MEDS: Levothyroxine 25 MCG Tab PO SCH (06:30)
[2021-06-09] MEDS: Levothyroxine 112 MCG Tab PO SCH (06:30)
[2021-06-09 08:06] LABS: SODIUM,NA 134 mmol/L (136-145)
[2021-06-09 08:07] LABS: ANION GAP 11.2 mmol/L (5-15); CHLORIDE,CL 102 mmol/L (98-107)
[2021-06-09] MEDS: Loperamide 2 MG Cap PO PRN (10:38)
[2021-06-09] MEDS: NS with KCl 40mEq 1,000 ML IV SCH ×2 (10:58→22:01)
[2021-06-09] MEDS: Ondansetron 4 MG/2 ML SDV IV PRN (23:12)
[2021-06-09] MEDS ORDERED: Aluminum Hydroxide/Magnesium Hydroxide/Simethicone Susp 30 ML Cup PO PRN (23:21)
[2021-06-10] MEDS: metroNIDAZOLE/Normal Saline 500 MG in Premix Bag 1 BAG IV SCH (03:22)
[2021-06-10] MEDS: Loperamide 2 MG Cap PO PRN (03:29)
[2021-06-10] MEDS: Ketorolac 30 MG/ML SDV IVPUSH PRN ×2 (03:29→23:51)
[2021-06-10] MEDS: Ciprofloxacin in D5W 400 MG in Premix Bag 1 BAG IV SCH ×2 (05:59)
[2021-06-10] MEDS: Levothyroxine 112 MCG Tab PO SCH ×2 (06:18→06:31)
[2021-06-10] MEDS: Levothyroxine 25 MCG Tab PO SCH ×2 (06:18→06:31)
[2021-06-10 08:15] LABS: ANION GAP 12.1 mmol/L (5-15); CHLORIDE,CL 103 mmol/L (98-107); SODIUM,NA 135 mmol/L (136-145)
[2021-06-10] MEDS ORDERED: LORazepam 0.5 MG Tab PO PRN (10:00)
[2021-06-10] MEDS ORDERED: metroNIDAZOLE 500 MG Tab PO SCH (10:00)
[2021-06-10] MEDS ORDERED: Sodium Chloride 0.9% 10 ML Syringe FLUSH PRN (10:05)
[2021-06-10] MEDS ORDERED: Azithromycin 500 MG in Sodium Chloride 0.9% 250 ML IV ONE (12:30)
[2021-06-10] MEDS: Ondansetron 4 MG/2 ML SDV IV PRN (12:40)
[2021-06-10] MEDS ORDERED: Fluconazole 100 MG Tab PO ONE ×2 (12:43→18:00)
[2021-06-10] MEDS: Sodium Chloride 0.9% 50 ML IV SCH (14:32)
[2021-06-10] MEDS ORDERED: Potassium Chloride 20 MEQ in Premix Bag 1 BAG IV ONE (19:00)
[2021-06-10] MEDS: Sodium Chloride 0.9% 250 ML IV SCH ×2 (20:07→22:55)
[2021-06-10] MEDS ORDERED: Promethazine 6.25 MG/5 ML Liquid 10 ML UD Cup PO SCH (21:00)
[2021-06-11] MEDS: Levothyroxine 112 MCG Tab PO SCH ×2 (06:16→06:29)
[2021-06-11] MEDS: Levothyroxine 25 MCG Tab PO SCH ×2 (06:16→06:29)
[2021-06-11 06:27] VITALS: BP 118/84; PULSE 60
[2021-06-11 08:16] LABS: ANION GAP 8.1 mmol/L (5-15); CHLORIDE,CL 107 mmol/L (98-107); SODIUM,NA 138 mmol/L (136-145)
== END 2021-06-11 10:25 | disposition home or self-care (01) | DRG 248 ==
LOC: KA.ED 14:43 → KA.MS 17:04
PROVIDERS: ADMIT Physician Assistant Medical; ATTEND Internal Medicine
DX: A04.5 Campylobacter enteritis (principal); E86.0 Dehydration; E87.1 Hypo-osmolality and hyponatremia; F41.9 Anxiety disorder, unspecified; F32.A Depression, unspecified; E66.9 Obesity, unspecified; E11.9 Type 2 diabetes mellitus without complications; Z20.822 Contact with and (suspected) exposure to COVID-19; E78.5 Hyperlipidemia, unspecified; E87.6 Hypokalemia; Z79.890 Hormone replacement therapy; Z79.899 Other long term (current) drug therapy; I25.2 Old myocardial infarction; Z87.440 Personal history of urinary (tract) infections; Z79.4 Long term (current) use of insulin; Z68.35 Body mass index [BMI] 35.0-35.9, adult; Z90.49 Acquired absence of other specified parts of digestive tract; Z90.89 Acquired absence of other organs; Z98.890 Other specified postprocedural states; Z90.710 Acquired absence of both cervix and uterus; Z90.721 Acquired absence of ovaries, unilateral
CPT/HCPCS: 36415; 71045; 74177; 80048; 80053; 82947; 83605; 83630; 83690; 83735; 84145; 85025; 87040; 87045; 87046; 87324; 87449; 87899; 96365; 99223; 99285-25; A9270-GY; J0456; J0744; J1885; J2405; J3480; J3490; J7030; J7050; Q9967; U0002

== ENCOUNTER 2022-10-07 14:40 | Emergency (ER) | payer BC ==
[2022-10-07] MEDS: Ondansetron 4 MG/2 ML SDV IVPUSH ONE ×2 (15:10→15:35)
[2022-10-07] MEDS: Ondansetron 4 MG/2 ML SDV ONE (15:30)
[2022-10-07 15:53] LABS: BASOPHILS ABSOLUTE AUTO 0.02 10^3/uL (0.00-0.10); BASOPHILS PERCENT AUTO 0.4 % (0.0-1.0); EOSINOPHILS ABSOLUTE AUTO 0.17 10^3/uL (0.10-0.30); EOSINOPHILS PERCENT AUTO 3.7 % (1.0-3.0); HEMATOCRIT 46.2 % (37.0-47.0); HEMOGLOBIN 16.1 g/dL (12.0-16.0); IMMATURE GRAN ABSOLUTE AUTO 0.01 10^3/uL (0.00-0.50); IMMATURE GRAN PERCENT AUTO 0.2 % (0.0-5.0); LYMPHOCYTES PERCENT AUTO 50.3 % (20.0-40.0); MEAN CORPUSCULAR HGB CONC 34.8 g/dL (32.0-36.0); MEAN PLATELET VOLUME 11.3 fL (7.4-10.4); MONOCYTES ABSOLUTE AUTO 0.27 10^3/uL (0.10-0.80); MONOCYTES PERCENT AUTO 5.9 % (2.0-8.0); NEUTROPHILS PERCENT AUTO 39.5 % (50.0-70.0); PLATELET COUNT,PLT 120 10^3/uL (150-400); RED BLOOD CELL COUNT 5.37 10^6/uL (3.80-5.50); RED CELL DISTRIBUTION WIDTH 13.1 % (11.5-14.5); WHITE BLOOD CELL COUNT,WBC 4.57 10^3/uL (5.00-10.00)
[2022-10-07 16:02] LABS: APPEARANCE,URINE CLEAR (CLEAR); BILIRUBIN,URINE SMALL (NEGATIVE); COLOR,URINE YELLOW (YELLOW); GLUCOSE,URINE NEGATIVE (NEGATIVE); KETONES,URINE NEGATIVE (NEGATIVE); LEUKOCYTE ESTERASE,URINE TRACE (NEGATIVE); NITRITE,URINE NEGATIVE (NEGATIVE); OCCULT BLOOD,URINE SMALL (NEGATIVE); PROTEIN,URINE 30 mg/dL (NEGATIVE); UROBILINOGEN,URINE 0.2 E.U./dL (0.2-1.0)
[2022-10-07 16:03] LABS: ALANINE AMINOTRANSFERASE,ALT 63 U/L (14-63); ALBUMIN 3.97 g/dL (3.40-5.00); ALKALINE PHOSPHATASE 96 U/L (46-116); ANION GAP 15.1 mmol/L (5-15); ASPARTATE AMNIOTRANSFERASE,AST 46 U/L (15-37); BILIRUBIN TOTAL 0.8 mg/dL (0.2-1.0); BLOOD UREA NITROGEN,BUN 12 mg/dL (7-18); CALCIUM 8.9 mg/dL (8.7-10.3); CARBON DIOXIDE,CO2 28.3 mmol/L (21.0-32.0); CHLORIDE,CL 100 mmol/L (98-107); CREATININE 0.63 mg/dL (0.51-1.17); EST CRCL DRUG DOSING (CG) 98.27 mL/min; GLUCOSE RANDOM 120 mg/dL (70-140); POTASSIUM,K 3.4 mmol/L (3.5-5.1); PROTEIN TOTAL,TP 7.6 g/dL (6.4-8.2); SODIUM,NA 140 mmol/L (136-145)
[2022-10-07] MEDS: Sodium Chloride 0.9% 1,000 ML IV ONE (16:03)
[2022-10-07 16:04] LABS: C-REACTIVE PROTEIN < 0.4 mg/dL (0.0-0.9); ESTIMATED GFR 109 mL/min (>=60)
[2022-10-07 16:08] LABS: BACTERIA,URINE FEW /HPF (NONE TO FEW); EPITHELIAL CELLS,URINE FEW /LPF
[2022-10-07 16:59] VITALS: BP 126/89; PULSE 68
[2022-10-07] MEDS: Sucralfate 1 GM Tab PO ONE (17:15)
[2022-10-07] MEDS: Sucralfate 1 GM Tab ONE (17:17)
== END 2022-10-07 17:35 | disposition home or self-care (01) ==
LOC: KA.ED 14:40
DX: H81.393 Other peripheral vertigo, bilateral (principal); I10 Essential (primary) hypertension; I25.2 Old myocardial infarction; E11.9 Type 2 diabetes mellitus without complications; E20.9 Hypoparathyroidism, unspecified; Z86.16 Personal history of COVID-19; Z88.8 Allergy status to other drugs, medicaments and biological substances; Z79.899 Other long term (current) drug therapy; Z79.84 Long term (current) use of oral hypoglycemic drugs
CPT/HCPCS: 70450; 80053; 81001; 85025; 86140; 93010; 96361; 96374; 99284; 99284-25; A9270-GY; J2405; J7030

== ENCOUNTER 2022-10-25 08:12 | Day surgery (SDC) | payer BC ==
[2022-10-25] MEDS ORDERED: Glycopyrrolate 0.2 MG/ML SDV IVPUSH ONE (08:13)
[2022-10-25] MEDS ORDERED: Ondansetron 4 MG/2 ML SDV IV ONE (08:13)
[2022-10-25] MEDS: Sodium Chloride 0.9% 1,000 ML IV SCH (08:36)
[2022-10-25] MEDS ORDERED: Propofol 200 MG/20 ML SDV ONE (09:08)
[2022-10-25] MEDS ORDERED: Lidocaine 2% 5 ML SDV ONE (09:08)
[2022-10-25] MEDS ORDERED: Midazolam 1 MG/ML 2 ML SDV ONE (09:08)
[2022-10-25 10:45] VITALS: BP 129/84
[2022-10-25 10:55] VITALS: PULSE 72
== END 2022-10-25 11:35 | disposition home or self-care (01) ==
LOC: KA.SDS 08:12
PROVIDERS: ATTEND Surgery
DX: K29.50 Unspecified chronic gastritis without bleeding (principal); K21.00 Gastro-esophageal reflux disease with esophagitis, without bleeding; K31.89 Other diseases of stomach and duodenum; Z79.890 Hormone replacement therapy; Z79.899 Other long term (current) drug therapy; Z79.84 Long term (current) use of oral hypoglycemic drugs
CPT/HCPCS: 00731; 82947; J2250; J2405; J2704; J3490; J7030